=== PATIENT | female | born 1975 | race Caucasian/White ===

== ENCOUNTER 2017-05-12 01:53 | Emergency (ER) | payer BC ==
[~2017-05-12] VITALS: Ht 160 cm; Wt 95.9 kg
[~2017-05-12 01:53] MED LIST: ADDERALL15 MG PO; BENTYL 10MG10 MG/CAP PO; CATAPRES 0.1MG0.1 MG PO; GLUCOPHAGE500 MG/TAB PO; LIPITOR 40MG TA40 MG PO; PAMELOR 25MG25 MG PO; PYRIDIUM 100MG100 MG PO; SEASONIQUE1 TAB PO; SENOKOT S 50 MG1 TAB PO; TOPAMAX200 MG PO; ULTRAM 50MG TAB50 MG PO; VITAMIN D31000 I1 PO
[2017-05-12 01:56] VITALS: TEMP 98
[2017-05-12 03:07] LABS: BASO # 0.1 (0.0-0.2); BASO % 0.8 % (0.0-2.0); EOS # 0.2 (0.0-0.7); EOS % 1.6 % (0-4.0); GRAN # 5.6 (1.4-6.5); GRAN % 53.5 % (42.2-75.2); HEMATOCRIT 42.2 % (37.0-47.0); HEMOGLOBIN 14.7 g/dl (12.5-16.0); LYMPH # 3.9 (1.2-3.4); LYMPH % 37.4 % (20.0-51.0); MEAN CELL VOLUME 85 fl (80.0-100.0); MEAN CORPUSCULAR HEMOGLOBIN 30 pg (27.0-31.0); MEAN CORPUSCULAR HGB CONC 35 g/dl (33.0-37.0); MEAN PLATELET VOLUME 11.1 fl (7.4-10.4); MONO # 0.7 (0.1-0.6); MONO % 6.5 % (1.7-9.3); PLATELET COUNT 330 K/mm3 (130-400); RED BLOOD COUNT 4.94 M/mm3 (4.10-5.30); REDCELL DISTRIBUTION WIDTH-CV 12.4 % (11.5-14.5); WHITE BLOOD COUNT 10.5 K/mm3 (4.8-10.8)
[2017-05-12 03:16] LABS: ADJUSTED CALCIUM 9.4 mg/dL (8.4-10.2); ALBUMIN 4.6 gm/dL (3.5-5.0); BILIRUBIN,TOTAL 0.6 mg/dL (0.0-1.0); CALCIUM 9.9 mg/dL (8.4-10.2); CREATININE, serum 0.92 mg/dL (0.52-1.25); POTASSIUM 3.7 mmol/L (3.4-5.0); TOTAL PROTEIN 7.6 gm/dL (6.4-8.2)
[2017-05-12 03:27] LABS: PH 5 (5-8); URINE APPEARANCE Hazy; URINE BACTERIA Rare /hpf; URINE BILIRUBIN Negative (NEGATIVE); URINE BLOOD 1+ (NEGATIVE); URINE COLOR Amber; URINE GLUCOSE 1+ (NEGATIVE); URINE KETONE Negative (NEGATIVE); URINE UROBILINOGEN >=4.0 mg/dL (NEGATIVE)
[2017-05-12 03:30] LABS: URINE WBC 0-2 /hpf
[2017-05-12] MEDS ORDERED: ZOFRAN 4MG T4 MG/TAB PO (04:59)
[2017-05-12] MEDS ORDERED: NORCO 325 MG-7.1 TAB PO (04:59)
[2017-05-12 05:11] VITALS: BP 116/62; PULSE 68
== END 2017-05-12 05:40 | disposition home or self-care (01) ==
LOC: COL.ER 01:53
PROVIDERS: Emergency Medicine
DX: N23 Unspecified renal colic (principal); Z87.442 Personal history of urinary calculi; R29.898 Other symptoms and signs involving the musculoskeletal system; R10.31 Right lower quadrant pain; R11.0 Nausea
CPT/HCPCS: J0696; J1170; J2405; J7030; Q9967

== ENCOUNTER → 2017-06-19 | Outpatient (CLI) | payer BC ==
[~2017-06-19] MED LIST changes: +NORCO 325 MG-7.1 TAB PO; +ZOFRAN 4MG T4 MG/TAB PO
== END ==
LOC: COL.RAD 07:18
DX: N13.39 Other hydronephrosis (principal)